=== PATIENT | female | born 1960 | race Two or more races ===

== ENCOUNTER 2016-06-21 09:50 | Emergency (ER) | payer MEDICAID ==
[~2016-06-21] VITALS: Ht 162.6 cm; Wt 65.8 kg
[~2016-06-21 09:50] MED LIST: BENZ0.5T14 PO; FLUO20CA19 PO; METH500T6 PO; QUET300T23 PO; RISP2TAB59 PO; TRAZ100T2 PO; ZIPR80CA9 PO
[2016-06-21] MEDS ORDERED: SODIUM CHLORIDE 0.9% 1,000 ML IV ONE (10:41)
[2016-06-21 10:51] LABS: DEFINITIVE VIEW TRANSMISSION; Hematocrit 23.1 % (36.0-46.0); Hemoglobin 7.1 g/dL (12.2-16.2); Mean Corpuscular Hemoglobin 21.9 pg (28.0-32.0); Mean Corpuscular Hgb Conc. 30.9 g/dL (32.0-36.0); Mean Corpuscular Volume 70.7 fL (80.0-100.0); Mean Platelet Volume 7.5 fL (7.4-10.4); Platelet Count (auto) 360 10^3/uL (140-450); SUSPECT VIEW TRANSMISSION; White Blood Cell 6.6 10^3/uL (4.4-10.8)
[2016-06-21 11:04] LABS: Albumin 2.6 g/dL (3.4-5.0); Anion Gap 10 (5-15); Aspartate Aminotransferase 19 U/L (15-37); BUN/Creatinine Ratio 13.1; Blood Urea Nitrogen 14 mg/dL (7-18); Calcium 7.9 mg/dL (8.5-10.1); Carbon Dioxide 26 mmol/L (21-32); Chloride 104 mmol/L (98-107); GFR African American 68 mL/min; GFR Non-African American 56 mL/min; Glucose 110 mg/dL (74-106); Potassium 3.7 mmol/L (3.5-5.1); Salicylate < 1.7 mg/dL (2.8-20.0); Sodium 140 mmol/L (136-145)
[2016-06-21 11:07] LABS: Acetaminophen < 2.0 ug/mL (10-30); Alkaline Phosphatase 60 U/L (45-117); Bilirubin, Total 0.1 mg/dL (0.2-1.0); Total Protein 6.2 g/dL (6.4-8.2)
[2016-06-21 11:08] LABS: Red Cell Distribution Width 20.7 % (11.6-16.0)
[2016-06-21 11:09] LABS: Metamyelocytes % 0; Myelocytes % 0; Promyelocytes % 0; Reactive Lymphocytes 0
[2016-06-21 11:44] LABS: Anisocytosis Slight; Hypochromia Slight; Ovalocytes FEW; Platelet Estimate Adequate
[2016-06-21 13:16] LABS: Urine Bilirubin Negative (Negative); Urine Blood Negative /uL (Negative); Urine Color Yellow (Yellow); Urine Glucose Normal (Normal); Urine Ketone Negative (Negative); Urine Mucus FEW (None Seen); Urine Nitrite Negative (Negative); Urine RBC 2 /hpf (0 - 4); Urine Squamous Epithelial Cell FEW /hpf (<5); Urine Urobilinogen Normal (Negative); Urine pH 6.5 (5.0-8.0)
[2016-06-21 14:55] VITALS: BP 150/47
== END 2016-06-21 15:02 | disposition home or self-care (01) ==
LOC: EDBD 09:50 → EDUNIT# 09:50 → ER 10:03
DX: T43.591A Poisoning by other antipsychotics and neuroleptics, accidental (unintentional), initial encounter (principal); F17.210 Nicotine dependence, cigarettes, uncomplicated; R41.82 Altered mental status, unspecified; F32.9 Major depressive disorder, single episode, unspecified; Y92.89 Other specified places as the place of occurrence of the external cause
CPT/HCPCS: 36415; 80053; 80320; 80329; 81001; 82962; 83735; 84484; 85007; 85027; 85049; 93005; 94761; 96360; 96361; 99285; G0434; J7030

== ENCOUNTER 2017-05-27 21:06 | Emergency (ER) | payer MEDICAID ==
[~2017-05-27] VITALS: Ht 157.5 cm; Wt 51.7 kg
[2017-05-27 21:55] LABS: Eosinophils # (auto) 0.1 uL; Eosinophils % (auto) 1.1 % (0.0-7.0); Hemoglobin 10.6 g/dL (12.2-16.2); Mean Corpuscular Hemoglobin 20.5 pg (28.0-32.0); Mean Platelet Volume 7.4 fL (6.9-10.8); Monocytes # (auto) 0.9 uL; Neutrophils # (auto) 6.9 uL; White Blood Cell 10.4 10^3/uL (4.4-10.8)
[2017-05-27 21:56] LABS: Basophils # (auto) 0.1 uL; Basophils % (auto) 0.7 % (0.0-2.0); Hematocrit 33.6 % (36.0-46.0); Lymphocytes # (auto) 2.5 uL; Lymphocytes % (auto) 23.7 % (10.0-50.0); Mean Corpuscular Hgb Conc. 31.5 g/dL (32.0-36.0); Mean Corpuscular Volume 65.2 fL (80.0-100.0); Monocytes % (auto) 8.2 % (0.0-12.0); Neutrophils % (auto) 66.3 % (37.0-80.0); Platelet Count (auto) 441 10^3/uL (140-450)
[2017-05-27 22:04] LABS: Red Cell Distribution Width 20.2 % (11.8-14.3)
[2017-05-27 22:07] LABS: Albumin 3.8 g/dL (3.4-5.0); BUN/Creatinine Ratio 12.3; Calcium 10.1 mg/dL (8.5-10.1); Potassium 3.6 mmol/L (3.5-5.1)
[2017-05-27 22:10] LABS: Bilirubin, Total 0.4 mg/dL (0.2-1.0); Total Protein 8.6 g/dL (6.4-8.2)
[2017-05-27 22:49] LABS: Anisocytosis Slight; Platelet Estimate Adequate
[2017-05-27 22:50] LABS: Hypochromia Moderate; Microcytosis Marked; Ovalocytes FEW
[2017-05-28] MEDS ORDERED: SODIUM CHLORIDE 0.9% 500 ML IVB ONE (01:21)
[2017-05-28] MEDS ORDERED: PANTOPRAZOLE 40 MG/10 ML VIAL IV STA (01:21)
[2017-05-28] MEDS ORDERED: ONDANSETRON HCL 4 MG/2 ML VIAL IV ONE (01:30)
[2017-05-28] MEDS ORDERED: HYDROmorphone HCL 2 MG/ML VL IV ONE (01:30)
[2017-05-28 04:35] VITALS: BP 131/78
== END 2017-05-28 05:42 | disposition home or self-care (01) ==
LOC: EDBD 21:06 → ER 21:06
DX: K59.00 Constipation, unspecified (principal); F17.210 Nicotine dependence, cigarettes, uncomplicated
CPT/HCPCS: 36415; 74176; 76705; 80053; 82150; 83690; 85025; 93005; 96361; 96374; 96375; 99285; C9113; J1170; J2405; J7040

== ENCOUNTER 2019-02-28 18:34 | Emergency (ER) | payer MEDICAID ==
[~2019-02-28] VITALS: Ht 152.4 cm; Wt 51.7 kg
[2019-02-28 19:31] LABS: Hematocrit 31.7 % (36.0-46.0); Hemoglobin 9.7 g/dL (12.2-16.2); Mean Corpuscular Hgb Conc. 30.7 g/dL (32.0-36.0); Mean Corpuscular Volume 58.7 fL (80.0-100.0); Platelet Count (auto) 353 10^3/uL (140-450); Red Blood Cells 5.41 10^6/uL (4.0-5.20); White Blood Cell 8.1 10^3/uL (4.4-10.8)
[2019-02-28 19:56] LABS: Albumin 3.9 g/dL (3.4-5.0); Calcium 9.4 mg/dL (8.5-10.1); Potassium 3.3 mmol/L (3.5-5.1)
[2019-02-28 19:57] LABS: Red Cell Distribution Width 23.6 % (11.8-14.3)
[2019-02-28 19:58] LABS: Basophils % (manual) 0 (0.0-2.0); Blast Cells 0; Eosinophils % (manual) 0 (0-7); Metamyelocytes % 0; Myelocytes % 0; Promyelocytes % 0; Reactive Lymphocytes 0
[2019-02-28 20:01] LABS: Urine Amorphous Crystal FEW /hpf (None Seen); Urine Bacteria FEW /hpf (None Seen); Urine Blood Negative /uL (Negative); Urine Specific Gravity 1.018 (1.001-1.035); Urine WBC 3 /hpf (0 - 5)
[2019-02-28 20:02] LABS: Bilirubin, Total 0.3 mg/dL (0.2-1.0); Total Protein 8.7 g/dL (6.4-8.2)
[2019-02-28 20:33] LABS: Band Neutrophils % (manual) 4; Lymphocytes % (manual) 7 (10.0-50.0); Monocytes % (manual) 6 (0-12)
[2019-03-01 00:05] VITALS: BP 112/56
[2019-03-01] MEDS ORDERED: LORazepam 2MG/ML-1ML VIAL IV ONE (01:45)
== END 2019-03-01 03:48 | disposition home or self-care (01) ==
LOC: ER 18:39
DX: K20.9 Esophagitis, unspecified (principal); K59.00 Constipation, unspecified; Z79.899 Other long term (current) drug therapy
CPT/HCPCS: 36415; 74176; 80053; 80320; 81001; 83690; 85007; 85027; 93005; 96374; 99284; J2060